=== PATIENT | female | born 1975 | race Caucasian/White ===

== ENCOUNTER 2016-12-08 08:12 | Emergency (ER) | payer SELFPAY ==
[~2016-12-08 08:12] MED LIST: AFRIN15 NAS; BC HEADACHE PO; EMERGEN-C PO; KLONO5 PO; LORT7 PO; LORTAB10 PO; MACROBID PO; MUCINEX DM1 TAB PO; NORCO1 TA1 PO; PROAIR HFA INH; VITAMIN B PO; [UNRECOGNIZED DRUG - OTHER] PO
== END 2016-12-08 08:58 | disposition home or self-care (01) ==
LOC: ER 08:12
PROC: 0H98XZZ Drainage of Buttock Skin, External Approach (ICD-10-PCS; principal; 2016-12-08)
DX: L02.31 Cutaneous abscess of buttock (principal); F17.200 Nicotine dependence, unspecified, uncomplicated; Z88.5 Allergy status to narcotic agent; Z88.8 Allergy status to other drugs, medicaments and biological substances; Z79.899 Other long term (current) drug therapy
CPT/HCPCS: 99284; A9270-GY

== ENCOUNTER 2017-02-03 09:47 | Emergency (ER) | payer SELFPAY ==
[2017-02-03 10:56] LABS: ASCORBIC ACID (UR NOT ORDER) NEG (NEG); BILIRUBIN, URINE NEGATIVE (NEG); ER URINALYSIS TAT 0 Hrs 08 Mins; KETONE, URINE NEGATIVE (NEG); LEUKOCYTE ESTERASE(NOT OR NEG (NEG); NITRITE (URINE) NEG (NEG); WBC (NOT ORDERED) (RFLEX) < 1 (0-5)
[2017-02-03 11:36] LABS: BASOPHILS 0.7 %; BASOPHILS ABSOLUTE 0.05 10/3/uL (0.0-0.16); EOSINOPHILS 2.8 %; EOSINOPHILS ABSOLUTE 0.19 10/3/uL (0.0-0.53); ER CBC TAT 0 Hrs 07 Mins; HEMATOCRIT 38.1 % (36.0-48.0); HEMOGLOBIN 13.3 g/dL (12.0-16.0); IMMATURE GRANULOCYTES 0.1 %; IMMATURE GRANULOCYTES ABSOLUTE 0.01 10/3/uL (0.0-0.11); LYMPHOCYTES 37.9 %; LYMPHOCYTES ABSOLUTE 2.56 10/3/uL (0.67-4.30); MANUAL DIFF NO %; MEAN CORPUS HGB CONC 34.9 g/dL (32.0-36.0); MEAN CORPUSCULAR HEMOGLOB 32.8 pg (26.0-34.0); MEAN CORPUSCULAR VOLUME 94.1 fL (80-100); MEAN PLATELET VOLUME 10.4 fL (9.2-13.0); MONOCYTES 11.1 %; MONOCYTES ABSOLUTE 0.75 10/3/uL (0.21-1.20); NEUTROPHILS 47.4 %; PLATELET COUNT 230 10/3/uL (150-400); RBC DISTRIBUTION WIDTH 14.2 % (12.0-16.0); RED CELL COUNT 4.05 10/6/uL (4.0-5.6); WHITE BLOOD CELLS 6.8 10/3/uL (4.5-10.5)
[2017-02-03 11:53] LABS: A/G RATIO 1.1 (0.7-1.9); ALBUMIN 3.6 G/DL (3.5-5.0); ALKALINE PHOSPHATASE 81 U/L (45-117); BUN (BLOOD UREA NITROGEN) 15 MG/DL (6-23); CALCIUM, SERUM 8.8 MG/DL (8.5-10.4); CHLORIDE, SERUM 108 MMOL/L (96-112); CO2 (CARBON DIOXIDE) 30 MMOL/L (24-34); CREATININE 0.72 MG/DL (0.55-1.02); DIRECT BILIRUBIN < 0.1 MG/DL (0.0-0.4); GFR AFRICAN AMERICAN 120 ML/MIN (>=60); GFR NON AFRICAN AMERICAN 103 ML/MIN (>=60); GLOBULIN 3.2 G/DL (2.5-4.1); GLUCOSE, SERUM 79 MG/DL (60-99); INDIRECT BILIRUBIN(NOT ORDER) 0.2 MG/DL (0.1-0.9); POTASSIUM, SERUM 3.9 MMOL/L (3.5-5.3); SGOT(AST) 17 U/L (5-40); SGPT(ALT) 22 U/L (5-65); SODIUM, SERUM 141 MMOL/L (135-148); TOTAL BILIRUBIN 0.3 MG/DL (0-1.2); TOTAL PROTEIN 6.8 G/DL (6.0-8.5)
== END 2017-02-03 13:00 | disposition home or self-care (01) ==
LOC: ER 09:47
PROVIDERS: Emergency Medicine
DX: R10.9 Unspecified abdominal pain (principal); F41.9 Anxiety disorder, unspecified; G89.29 Other chronic pain; J45.909 Unspecified asthma, uncomplicated; F17.200 Nicotine dependence, unspecified, uncomplicated; Z76.5 Malingerer [conscious simulation]; Z48.00 Encounter for change or removal of nonsurgical wound dressing; Z87.442 Personal history of urinary calculi; Z88.6 Allergy status to analgesic agent; Z88.5 Allergy status to narcotic agent; Z79.899 Other long term (current) drug therapy
CPT/HCPCS: 74176; 80053; 81001; 82248; 83690; 85025; 96365; 99284; J2800

== ENCOUNTER 2017-02-27 06:25 | Inpatient (IN) | payer SELFPAY ==
--- NOTE | ~2017-02-27 | HP ---
History And Physical [address] [address] NAME: TINY SCHWARZ : 73 STATUS : ADM IN [facility]#: [id number] AGE: 41 ADM/REG DATE : 02/27/17 MR#: [id number] REPORT SERV DATE: 02/27/17 DICTATED BY: TOMÁS DE GUZMAN DATE: 02/27/17 REPORT STATUS : Draft TRANSCRIBED BY: MODL DATE: 02/27/17 DATE OF ADMISSION: 02/27/2017 HISTORY OF PRESENT ILLNESS: This is a 41-year-old female, who comes in for right flank pain and abdominal pain. The patient has a history of previous kidney stones and pancreatitis and was admitted here in 07/2013 and 08/2016 for pancreatitis. The patient was discharged at that time with clonazepam and hydrocodone. The patient was doing well until about two to three days ago when she started having right flank pain going to her epigastric area. She thought that it could either be her history of kidney stones versus pancreatitis because it is similar in presentation in the previous admissions. The patient took some Percocet that she still has from previous doctor's visit and tried not to eat. Unfortunately, it continued to get worse, this was associated with chills and undocumented fever and finally decided to come to the emergency room. In the ER, the patient underwent a urinalysis, which shows hematuria, but negative nitrites and unremarkable wbc. A CAT scan was done, which shows normal liver, normal gallbladder, normal pancreas, normal spleen, normal adrenal glands, bilateral tiny nonobstructive renal calculi without any hydronephrosis, normal aorta, moderate amount of fecal material in the colon. Lipase was taken that was found to be elevated at 900, and we are called to admit this patient. She admitted that she had nausea and vomiting x3 of previously ingested food and liquids. No coffee-grounds emesis or hematemesis. She denies any urinary or bowel changes. No hematuria. No pain on urination. She denies any change in mental status, rash, joint pains, localized weakness, cough, or shortness of breath and the 14-point review of systems is negative, except as above. PAST MEDICAL HISTORY: Includes the above, appendectomy, tonsillectomy, hysterectomy, previous right ureteral stent. ALLERGIES: SHE IS ALLERGIC TO SEROQUEL, TORADOL, AND MORPHINE. MEDICATIONS: Include multivitamin and previous Percocet. SOCIAL HISTORY: She smokes about half a pack a day for about 20 years. No alcohol, but admits to some marijuana use. FAMILY HISTORY: Mom with CAD, diabetes, hypertension and she mentioned a grandfather who had a partial pancreatectomy for unknown reason. LABORATORY DATA: Reveals a chemistry showing a calcium of 7.9, liver enzymes and the rest of the chemistry is within acceptable limits. Lipase is 907. White count of 7.7, H and H of 11.7 and 34.1. Urinalysis shows large blood, greater than 182 rbc's, only 1 wbc, rare bacteria, negative nitrites. ASSESSMENT: 1. Acute pancreatitis. 2. Hematuria with history of bilateral nephrolithiasis. 3. Tobacco abuse. History And Physical [address] [address] NAME: TINY SCHWARZ : 73 STATUS : ADM IN [facility]#: [id number] AGE: 41 ADM/REG DATE : 02/27/17 MR#: [id number] REPORT SERV DATE: 02/27/17 DICTATED BY: TOMÁS DE GUZMAN. DATE: 02/27/17 REPORT STATUS : Draft TRANSCRIBED BY: JACQUES DATE: 02/27/17 PLAN: The patient got another episode of pancreatitis. Unclear etiology on why she is having recurrent episodes. CT is unremarkable as well as LFTs. We will check the lipid profile, but previous triglycerides in August was unremarkable. Questionable genetic abnormality. The patient will need to have a PCP on discharge. Counseled on stopping smoking, we will start nicotine patch. This has been discussed with her in front of the , they agreed and understood the plan. ELYSSA/JACQUES Tomás De Guzman M.D. / [id number] CC: Tomás De Guzman M.D.
--- NOTE | ~2017-02-27 | HP ---
History And Physical [address] [address] NAME: TINY SCHWARZ : 73 STATUS : ADM IN [facility]#: [id number] AGE: 41 ADM/REG DATE : 02/27/17 MR#: [id number] REPORT SERV DATE: 02/27/17 DICTATED BY: TOMÁS DE GUZMAN DATE: 02/27/17 REPORT STATUS : Draft TRANSCRIBED BY: MODL DATE: 02/27/17 DATE OF ADMISSION: 02/27/2017 ADDENDUM: PHYSICAL EXAMINATION: VITAL SIGNS: Blood pressure of 134/73, temperature of 97.2, pulse rate of 91, respirations of 16, and 98% on room air. HEENT: She has pink conjunctivae. Anicteric sclerae. No pharyngeal erythema. LUNGS: No rales. No wheezes. CARDIOVASCULAR: Regular rate and rhythm. No murmurs. ABDOMEN: Positive bowel sounds. Soft. There is tenderness in the epigastric, right upper quadrant, and right flank area. No rebound, guarding, or masses. EXTREMITIES: Fair pulses. No edema. NEURO: Nonlocalizing. She is alert, oriented x3, and not in cardiopulmonary distress. ELYSSA/JACQUES Tomás De Guzman M.D. / [id number] CC: Tomás De Guzman M.D.
--- NOTE | ~2017-02-27 | DS ---
Discharge Summary [address] [place]. [address] NAME: TINY SCHWARZ : 73 STATUS : DIS IN PAT#: [id number] AGE: 41 ADM/REG DATE : 02/27/17 MR#: [id number] REPORT SERV DATE: 03/01/17 DICTATED BY: SAUL ZARAGOZA DATE: 03/01/17 REPORT STATUS : Draft TRANSCRIBED BY: MODL DATE: 03/01/17 ADMISSION DATE: 02/27/2017 DISCHARGE DATE: 03/01/2017 REASON FOR ADMISSION: Concern for acute pancreatitis. HISTORY OF PRESENT ILLNESS: Please refer to Dr. Michael Puri's history and physical dated 02/27/2017, for complete details regarding the patient's admission. In brief, the patient was admitted to the Hospitalist Service for epigastric pain and elevated lipase. HOSPITAL COURSE: The patient was initially admitted with a diagnosis of acute pancreatitis; however, she has no evidence on CT scan of pancreatitis. She did have an elevated lipase of 900. She was markedly constipated. She was given fluids, pain control. I assumed care of this patient on the from Dr. Puri and at which point I started her on an aggressive laxatives. She had multiple bowel movements and was feeling much better. Her nausea and vomiting had resolved. Her epigastric pain was markedly improved. She is requesting to go home. She will be discharged home today in stable condition. To take lrok-cis-intdaga laxatives. DISCHARGE DIAGNOSES: Epigastric pain secondary likely to constipation versus ulcer on the differential. No evidence of acute pancreatitis. Elevated lipase, nausea, and vomiting resolved. Polysubstance abuse with marijuana and cocaine in her urine drug screen. PROCEDURES: Include CT scan of the abdomen and pelvis. DISCHARGE MEDICATIONS: Include multivitamin. DICTATED BY: MD MELISSA Fay/AJCQUES Saul Zaragoza MD / [id number] CC: Saul Zaragoza MD
[2017-02-27 05:37] LABS: ASCORBIC ACID (UR NOT ORDER) NEG (NEG); BILIRUBIN, URINE NEGATIVE (NEG); ER URINALYSIS TAT 0 Hrs 00 Mins; KETONE, URINE NEGATIVE (NEG); LEUKOCYTE ESTERASE(NOT OR NEG (NEG); NITRITE (URINE) NEG (NEG); WBC (NOT ORDERED) (RFLEX) 1 (0-5)
[2017-02-27 07:54] LABS: BASOPHILS 0.4 %; BASOPHILS ABSOLUTE 0.03 10/3/uL (0.0-0.16); EOSINOPHILS 0.9 %; EOSINOPHILS ABSOLUTE 0.07 10/3/uL (0.0-0.53); ER CBC TAT 0 Hrs 03 Mins; HEMOGLOBIN 11.7 g/dL (12.0-16.0); IMMATURE GRANULOCYTES 0.3 %; IMMATURE GRANULOCYTES ABSOLUTE 0.02 10/3/uL (0.0-0.11); LYMPHOCYTES 33.6 %; LYMPHOCYTES ABSOLUTE 2.58 10/3/uL (0.67-4.30); MEAN CORPUS HGB CONC 34.3 g/dL (32.0-36.0); MEAN CORPUSCULAR HEMOGLOB 32.6 pg (26.0-34.0); MEAN PLATELET VOLUME 9.6 fL (9.2-13.0); MONOCYTES 10.8 %; MONOCYTES ABSOLUTE 0.83 10/3/uL (0.21-1.20); NEUTROPHILS ABSOLUTE 4.16 10/3/uL (2.02-8.40); PLATELET COUNT 212 10/3/uL (150-400); RBC DISTRIBUTION WIDTH 14.3 % (12.0-16.0); RED CELL COUNT 3.59 10/6/uL (4.0-5.6); WHITE BLOOD CELLS 7.7 10/3/uL (4.5-10.5)
[2017-02-27 07:56] LABS: HEMATOCRIT 34.1 % (36.0-48.0); MANUAL DIFF NO %
[2017-02-27 08:09] LABS: A/G RATIO 1.1 (0.7-1.9); ALBUMIN 3.1 G/DL (3.5-5.0); CALCIUM, SERUM 7.9 MG/DL (8.5-10.4); CHLORIDE, SERUM 112 MMOL/L (96-112); CO2 (CARBON DIOXIDE) 27 MMOL/L (24-34); CREATININE 0.63 MG/DL (0.55-1.02); GFR AFRICAN AMERICAN 128 ML/MIN (>=60); GFR NON AFRICAN AMERICAN 111 ML/MIN (>=60); GLOBULIN 2.7 G/DL (2.5-4.1); SGOT(AST) 11 U/L (5-40); SGPT(ALT) 20 U/L (5-65); SODIUM, SERUM 141 MMOL/L (135-148); TOTAL BILIRUBIN 0.3 MG/DL (0-1.2); TOTAL PROTEIN 5.8 G/DL (6.0-8.5)
[2017-02-27 08:10] LABS: ALKALINE PHOSPHATASE 64 U/L (45-117); BUN (BLOOD UREA NITROGEN) 21 MG/DL (6-23); GLUCOSE, SERUM 97 MG/DL (60-99)
[2017-02-27] MEDS ORDERED: MULTIVITAMI1 PO (09:33)
[2017-02-27 15:41] LABS: CHOL/HDL RATIO(NOT ORDER) 2.7 (0-5)
[2017-02-27 15:43] LABS: PARTIAL THROMBO TIME 30.3 SEC (22.5-37.2)
[2017-02-27 15:44] LABS: INTERNATIONAL NORMAL RATI 1.1 UNITS (-); PROTIME (NOT ORD) 14.1 SEC (12.0-14.5)
[2017-02-27 16:33] LABS: AMPHETAMINES (NOT ORD) NEG (NEG); BARBITURATES (NOT ORDERED NEG (NEG); BENZODIAZEPINES (NOT ORD) POS (NEG); CANNABINOIDS (THC) POS (NEG); COCAINE (NOT ORDERED) POS (NEG); OPIATES POS (NEG); PHENCYCLIDINE(PCP) NEG (NEG); TRICYCLICS NEG (NEG)
[2017-02-28 09:06] LABS: BASOPHILS 0.2 %; BASOPHILS ABSOLUTE 0.01 10/3/uL (0.0-0.16); EOSINOPHILS 1.8 %; EOSINOPHILS ABSOLUTE 0.12 10/3/uL (0.0-0.53); HEMATOCRIT 33.2 % (36.0-48.0); HEMOGLOBIN 11.2 g/dL (12.0-16.0); IMMATURE GRANULOCYTES 0.3 %; IMMATURE GRANULOCYTES ABSOLUTE 0.02 10/3/uL (0.0-0.11); LYMPHOCYTES 34.1 %; LYMPHOCYTES ABSOLUTE 2.27 10/3/uL (0.67-4.30); MEAN CORPUS HGB CONC 33.7 g/dL (32.0-36.0); MEAN CORPUSCULAR HEMOGLOB 33.1 pg (26.0-34.0); MEAN PLATELET VOLUME 10.4 fL (9.2-13.0); MONOCYTES 10.2 %; MONOCYTES ABSOLUTE 0.68 10/3/uL (0.21-1.20); NEUTROPHILS 53.4 %; NEUTROPHILS ABSOLUTE 3.56 10/3/uL (2.02-8.40); PLATELET COUNT 188 10/3/uL (150-400); RBC DISTRIBUTION WIDTH 14.5 % (12.0-16.0); RED CELL COUNT 3.38 10/6/uL (4.0-5.6); WHITE BLOOD CELLS 6.7 10/3/uL (4.5-10.5)
[2017-02-28 09:12] LABS: MANUAL DIFF NO %; MEAN CORPUSCULAR VOLUME 98.2 fL (80-100)
[2017-02-28 09:17] LABS: CHLORIDE, SERUM 111 MMOL/L (96-112); CO2 (CARBON DIOXIDE) 28 MMOL/L (24-34); CREATININE 0.68 MG/DL (0.55-1.02); GFR AFRICAN AMERICAN 125 ML/MIN (>=60); GFR NON AFRICAN AMERICAN 108 ML/MIN (>=60); GLUCOSE, SERUM 94 MG/DL (60-99); POTASSIUM, SERUM 4.3 MMOL/L (3.5-5.3); SODIUM, SERUM 143 MMOL/L (135-148)
[2017-02-28 09:19] LABS: BUN (BLOOD UREA NITROGEN) 8 MG/DL (6-23)
[2017-02-28 09:30] LABS: PLATELET ESTIMATE ADQ (ADEQUATE); RBC MORPHOLOGY NORM (NORMAL)
== END 2017-03-01 12:53 | disposition home or self-care (01) | DRG 392 ==
LOC: ER 06:25 → 4SO 10:25
PROVIDERS: Hospitalist; Internal Medicine
DX: K59.09 Other constipation (principal); F14.10 Cocaine abuse, uncomplicated; R31.9 Hematuria, unspecified; Z88.5 Allergy status to narcotic agent; Z88.8 Allergy status to other drugs, medicaments and biological substances; F17.210 Nicotine dependence, cigarettes, uncomplicated; Z87.442 Personal history of urinary calculi; F12.10 Cannabis abuse, uncomplicated
CPT/HCPCS: 36569-52; 74176; 80048; 80053; 80061; 80305; 81001; 83690; 85025; 85610; 85730; 96374; 96375; 99285; A9270-GY; C1751; J1170; J2405